=== PATIENT | female | born 1985 | race Caucasian/White ===

== ENCOUNTER 2021-06-22 01:34 | Emergency (ER) | payer OTHER ==
--- OUTSIDE RECORDS SUMMARY | 2021-06-22 01:41 | XMS REPORT | Continuity of Care Document ---
:1985 Author Organization [facility] t Address [address] [place] [address] Care Team Providers Name Role Phone Ronan Attending Clinician Unavailable Sandra Miller Attending Clinician Unavailable Sandra Miller Admitting Clinician Unavailable Payers Payer Name Policy Type Policy Number Effective Date Expiration Date S ource Problems This patient has no known problems. Allergies, Adverse Reactions, Alerts Allergy Allergy Status Severity Reaction(s) Onset Inactive Treating Comm ents Source Name Type Date Date Clinician clavulan DA Active PA 2020-0 [facility] [place] amoxicil DA Active PA 2020-0 [facility] jalyn 04-01 [facility] [place] clavulan DA Active PA hives 2020-0 [facility] - [facility] [place] amoxicil DA Active PA hives 2020-0 [facility] jalyn - [facility] [place] No Known DA Active U [facility] Allergie 09-25 [facility] [place] No Known DA Active U [facility] Allergie 09-25 [facility] [place] Augmenti Adverse Active hives [facility] Medications Ordered Filled Start Stop Current Ordering Indication Dosage Frequency Signature Comments Components Source Medication Medication Date Date Medication? Clinician (SIG) Name Name Metformin Metformin Yes Radha [address] [facility] HCl HCl [place] [facility] Procedures Procedure Date / Time Performed Performing Clinician Natasha holland [id number] 2019-04-01 00:00:00 MARMA.[email or web address] [facility] [id number] 2019-04-01 00:00:00 MARMA.09 [facility] Encounters Start End Encounter Admission Attending Care Care Encounter Source Date/Time Date/Time Type Type Clinicians Facility Department ID 2021-04-18 [facility] [id number] [facility] 12:25:06 Radha [id number] [facility] 2021-04-18 [facility] [id number] [facility] 11:59:38 Radha [id number] [facility] 2021-04-18 [facility] [id number] [facility] 11:59:37 Radha [id number] [facility] 2021-04-18 [facility] [id number] [facility] [address] 11:29:38 Radha [id number] [facility] 2019-04-13 Inpatient Alivia, [facility] [id number] [facility] 12:00:00 Cortez [id number] [facility] [place] [facility] 2019-04-01 In[facility] Babbitt[facility] [id number] [facility] 06:29:00 Cortez [id number] [facility] [place] [facility] 2020-01-18 2020-01-18 [facility] [id number] [facility] 2019-09-23 2019-09-23 [facility] [id number] 16:00[facility]00 16:00:00 [facility] 2018-03-11 2018-03-11 [facility] [id number] 09:30[facility]00 09:30[facility]00 [facility] Results Test Description Test Time Test Comments Results Result [facility] amalia ZENDEJAS 2019-04-06 TUBE,STERILIZATION 14:56:00 --------RUN DATE: 04/07/19 [facility] PAGE 1 RUN TIME: 957 Specimen Inquiry RUN USER: INTERFACE --------PATIENT: NEVILLE ROSENBERG LOC: JENNIFERARLEEN U #: [id number] AGE/SX: 33/F ROOM: [facility] RE04/01/19REG DR: Cortez Miller MD : 85 BED: A DIS: 04/04/19 STATUS: DIS IN TLOC: -------- SPEC #: [id number] RECD: 04/01/19-42 STATUS: CAMILLE TEJADA #: [id number] HENRRY: 01/09/20- SUBM DR: Cortez Miller MD ENTERED: 04/02/19-0742 SP TYPE: [facility] DR: ORDERED: LEVEL II SURGIC/2 CODES: [id number] - FALLOPIAN TUBE PROCEDURES: LEVEL II SURGIC (Incomplete) TISSUES: FALLOPIAN TUBE, NOS - BILATERAL FALLOPIAN TUBES CLINICAL HISTORY 33 year old, , 38.5 weeks, SROM, previous section, multiparity, desires sterility (azalia) FINAL DIAGNOSIS Right fallopian tube, tubal ligation: - fallopian tube with complete surgical transection, no pathologic alteration Left fallopian tube, tubal ligation: - fallopian tube with complete surgical transection, no pathologic alteration CPT code(s): 26330 x2 dominick/azalia dt: 04/06/19 GROSS DESCRIPTION ANATOMIC SOURCE OF TISSUE (per Requisition): Right and left fallopian tube segments (2 containers) Each specimen is labeled with the patient's name and medical record number. Specimen #1 is designated "right fallopian tube" and consists of a 1.0 cm in length and 0.5 cm in diameter pink-purple and hyperemic segment of fallopian tube. The lumen is pinpoint. Sap Basis Consultant sections are submitted labeled A1. Specimen #2 is designated "left fallopian tube" and consists of a 2.0 cm in length and 0.5 cm in diameter pink-purple and hyperemic segment of fallopian tube. The lumen is pinpoint. Sap Basis Consultant sections are submitted labeled B1. daysi/azalia 04/02/19 CONTINUED ON NEXT PAGE --------RUN DATE: 04/07/19 [facility] PAGE 2 RUN TIME: 957 Specimen Inquiry RUN USER: INTERFACE --------SPEC #: [id number] PATIENT: NEVILLE ROSENBERG #[id number] (Continued) MICROSCOPIC DESCRIPTION Specimen #1 - the fallopian tube architecture is intact. The lumen is not dilated. A completely transected segment of fallopian tube is present. Specimen #2 - the fallopian tube architecture is intact. The lumen is not dilated. A completely transected segment of fallopian tube is present. daquan dt: 04/06/19 Signed Tammy Johnson 04/06/19 1456 -------- END OF REPORT CBC W/AUTO DIFF 2019-04-02 06:10:00 Test Item Value Reference Range Interpretation Comme armani WHITE BLOOD CELL (test code = 14.4 K/mm3 6.6-12.1 H Results verified by repeat WBC) analysis RED BLOOD CELL (test code = RBC) 3.96 M/mm3 3.45-5.01 N HEMOGLOBIN (test code = HGB) 11.6 g/dL 10.7-13.9 N HEMATOCRIT (test code = HCT) 34.6 % 32.1-42.1 N MEAN CELL VOLUME (test code = 87 fL 84.1-94.8 N MCV) MEAN CELL HGB (test code = MCH) 29.3 pg 27-35 N MEAN CELL HGB CONCETRATION (test 33.5 gm/dL 32.2-34.1 N code = MCHC) RED CELL DISTRIBUTION WIDTH (test 14.0 % 12.4-16.5 N code = RDW) PLATELET COUNT (test code = PLT) 210 K/mm3 133-385 N IMMATURE PLATELET FRACTION (test 0.0 % 0.0-10.8 N code = IPF) MEAN PLATELET VOLUME (test code = 10.4 fl 9.1-12.7 N MPV) NEUTROPHIL % (test code = NT%) 82.9 % 56.5-79.4 H LYMPHOCYTE % (test code = LY%) 9.7 % 14.3-34.3 L MONOCYTE % (test code = MO%) 6.7 % 5.1-10.4 N EOSINOPHIL % (test code = EO%) 0.0 % 0.1-3.0 L BASOPHIL % (test code = BA%) 0.2 % 0.1-1.0 N NEUTROPHIL # (test code = NT#) 11.9 K/mm3 LYMPHOCYTE # (test code = LY#) 1.4 K/mm3 MONOCYTE # (test code = MO#) 1.0 K/mm3 EOSINOPHIL # (test code = EO#) 0 K/mm3 BASOPHIL # (test code = BA#) 0.0 K/mm3 RBC MORPHOLOGY REQUIRED (test NORMAL NORMAL code = RBCM) PLATELET MORPHOLOGY REQUIRED NORMAL NORMAL (test code = PLTMR) AG HEPATITIS B [id number] 17:16:00 Test Item Value Reference Range Interpretation Comments AG HEPATITIS B SURFACE (test code NONREACTIVE NONREACTIVE = HBSAG) IS CONSENT FORM SIGNED FOR HIV TESTING? YAB HEPATITIS C [id number] 17:16:00 Test Item Value Reference Range Interpretation Comments AB HEPATITIS C (test code = NONREACTIVE NONREACTIVE HCVAB) SIGNAL TO CUTOFF (test code = 0.09 <0.80 N CUTOFF) IS CONSENT FORM SIGNED FOR HIV TESTING? YAB [id number] 17:16:00 Test Item Value Reference Range Interpretation Comments AB TREPONEMA (test code = TREPAB) NONREACTIVE NONREACTIVE IS CONSENT FORM SIGNED FOR HIV TESTING? YAB HIV 1 17:16:00 Test Item Value Reference Range Interpretation Comments AB HIV 1 2 (test NONREACTIVE NONREACTIVE Done by [facility] code = CIT21CQ) 4th Gen HIV Ag/Ab Combo Screen IS CONSENT FORM SIGNED FOR HIV TESTING? YCOMPREHENSIVE METABOLIC [id number] 16:03:00 Test Item Value Reference Range Interpretation Comments SODIUM (test code = NA) 137 mEq/L 135-145 N POTASSIUM (test code = K) 3.6 mEq/L 3.5-5.0 N CHLORIDE (test code = CL) 104 mEq/L 100-115 N CARBON DIOXIDE (test code = CO2) 20 mEq/L 22-31 L ANION GAP (test code = GAP) 16.60 10-20 N GLUCOSE (test code = GLU) 156 mg/dL 65-110 H BLOOD UREA NITROGEN (test code = 6 mg/dL 7-18 L BUN) GLOMERULAR FILTRATION RATE (test 142 ml/min >60 N code = GFR) CREATININE (test code = CREAT) 0.5 mg/dL 0.5-1.0 N TOTAL PROTEIN (test code = PROT) 6.3 gm/dL 6.3-8.2 N ALBUMIN (test code = ALB) 2.8 gm/dL 3.4-4.8 L CALCIUM (test code = CA) 8.8 mg/dL 8.4-10.2 N BILIRUBIN TOTAL (test code = BILT) 0.5 mg/dL 0.2-1.0 N SGOT/AST (test code = AST) 19 units/L 15-37 N SGPT/ALT (test code = ALT) 18 units/L 12-78 N ALKALINE PHOSPHATASE TOTAL (test 99 units/L 46-116 N code = ALKP) CBC W/AUTO [id number] 16:02:00 Test Item Value Reference Range Interpretation Comments WHITE BLOOD CELL (test code = WBC) 9.0 K/mm3 6.6-12.1 N RED BLOOD CELL (test code = RBC) 4.18 M/mm3 3.45-5.01 N HEMOGLOBIN (test code = HGB) 12.4 g/dL 10.7-13.9 N HEMATOCRIT (test code = HCT) 36.8 % 32.1-42.1 N MEAN CELL VOLUME (test code = MCV) 88 fL 84.1-94.8 N MEAN CELL HGB (test code = MCH) 29.7 pg 27-35 N MEAN CELL HGB CONCETRATION (test 33.7 gm/dL 32.2-34.1 N code = MCHC) RED CELL DISTRIBUTION WIDTH (test 14.7 % 12.4-16.5 N code = RDW) PLATELET COUNT (test code = PLT) 221 K/mm3 133-385 N IMMATURE PLATELET FRACTION (test 0.0 % 0.0-10.8 N code = IPF) MEAN PLATELET VOLUME (test code = 10.6 fl 9.1-12.7 N MPV) NEUTROPHIL % (test code = NT%) 77.6 % 56.5-79.4 N LYMPHOCYTE % (test code = LY%) 17.7 % 14.3-34.3 N MONOCYTE % (test code = MO%) 4.0 % 5.1-10.4 L EOSINOPHIL % (test code = EO%) 0.1 % 0.1-3.0 N BASOPHIL % (test code = BA%) 0.3 % 0.1-1.0 N NEUTROPHIL # (test code = NT#) 7.0 K/mm3 LYMPHOCYTE # (test code = LY#) 1.6 K/mm3 MONOCYTE # (test code = MO#) 0.4 K/mm3 EOSINOPHIL # (test code = EO#) 0.01 K/mm3 BASOPHIL # (test code = BA#) 0.0 K/mm3 RBC MORPHOLOGY REQUIRED (test code NORMAL NORMAL = RBCM) PLATELET MORPHOLOGY REQUIRED (test NORMAL NORMAL code = PLTMR) - US FET BIO PH NE W/O [id number] 11:21:00 Patient Name: NEVILLE ROSENBERG Unit No: [id number] EXAMS: CPT CODE: [id number] US FET BIO PH NE W/O NST [address] [facility] [address] [place], [place] [address] BIOPHYSICAL PROFILE ULTRASOUND REPORT Pat. Name: NEVILLE ROSENBERG. No: [id number] Date: 04/01/2019 10:05am , Age: 03 1985, 33 Pregnancies: 4, Para 2, Ab1 LMP: Unknown GA Selected: 38w5d (From Known E) MARCELA: 04/10/2019 Referring MD: VANDA KONG Mixer Blender: Rafael Reardon RDMS CPT4: USBPPWONST Admitting MD: CORTEZ MILLER Hist/Ind: Contractions Bleeding ARI BPP Scan #1 Heart Rate: 147 bpm Amniotic Fluid Index: 07.7cm (07.2-23.0) Q1: 1.1cm Q2: 2.6cm Q3: 4.0cm Q4:0.0cm Biophysical Profile: 10/29 Breathin Tone: 2 Movement: 2 AFV: 2 CLINICAL SUMMARY Type of Gestation: Boo Intrauterine in vertex presentation. motion and organs seen: heart motion seen body and limb movements observed tone noted breathing movements observed Placental location: Anterior Placental maturity : Grade 2There is no evidence of placenta previa. Amniotic fluid volume is IN LOWER LIMIT NORMAL RANGE.Uterus and adnexa: No significant abnormality is seen. Biophysical Profile Movement score is 2. Breathing score is 2. Tone score is 2. Amniotic Fluid score is 2. Total Scores 8/8. COMMENTS: ARI IS LOW NORMAL. Thank you for allowing us to participate in the care of this patient. Ngoc Damian M.D. [facility] NAME: NEVILLE ROSENBERG Radiology Department PHYS: Vanda Sutherland MD [address] : 1985 AGE: 33 SEX: F [place] [address] LOC: VarinderDAVID PHONE #: [phone] EXAM DATE: 04/01/2019 STATUS: REG ER FAX #: [phone] RADNO: Page 1 Signed Report (CONTINUED) Patient Name: NEVILLE ROSENBERG Unit No: [id number] EXAMS: CPT CODE: [id number] US FET BIO PH NE W/O NST 24481 <Continued> Electronic Signature 04/01/2019 11:21am at 1121 Reported and signed by: Ngoc Damian MD CC: Vanda Kong MD; Cortez Miller MD Technologist: Rafael Reardon RDMS Probe: Trnscrbd D/ (1121) t.SDR.C Orig Print D/T: S: 04/01/2019 (1121) [facility] NAME: NEVILLE ROSENBERG Radiology Department PHYS: Vanda Sutherland MD [address] : 1985 AGE: 33 SEX: F [place] [address] LOC: VarinderDAVID PHONE #: [phone] EXAM DATE: 04/01/2019 STATUS: REG ER FAX #: [phone] RAD NO: Page 2 Signed Report Patient Name: NEVILLE ROSENBERG Unit No: [id number] EXAMS: CPT CODE: [id number] US FET BIO PH NE W/O NST 81070 <Continued> [facility] NAME: NEVILLE ROSENBERG Radiology Department PHYS: Vanda Sutherland MD [address] : 1985 AGE: 33 SEX: F [place], [place] [address] LOC: VarinderDAVID PHONE #: [phone] EXAM DATE: 04/01/2019 STATUS: REG ER FAX #: [phone] RAD NO: Page 3 Signed ReportAMNISURE (ROM) [id number] 09:57:00 Test Item Value Reference Range Interpretation Comments AMNISURE (ROM) TEST (test code = RUPTURED NON-RUPTURE A AMNI) : *Amnisure QC OK? YES
[2021-06-22] MEDS ORDERED: ASPIRIN 81 MG CHEWABLE TABLET ONE (03:28)
[2021-06-22] MEDS ORDERED: NA CHLORIDE 0.9% 1,000 ML ONE (03:43)
[2021-06-22 04:00] LABS: Absolute Lymphocytes (CBC) 1.2 K/uL (0.7-4.9); Hematocrit 38.9 % (36.0-45.0); Lymphocytes % 17.1 % (15.3-44.8); MPV 8.1 fL (7.6-11.3); RBC Red Blood Cell Count 4.62 M/uL (3.86-4.86)
[2021-06-22 04:28] LABS: Albumin 3.9 g/dL (3.4-5.0); Bilirubin Direct 0.1 mg/dL (0-0.2); Bilirubin Total 0.4 mg/dL (0.2-1.0); Potassium 3.9 mmol/L (3.5-5.1); Protein, Total 8.3 g/dL (6.4-8.2); Thyroid Stimulating Hormone 0.479 uIU/mL (0.360-3.740); Troponin High Sensitivity 3.2 pg/mL (<58.9)
[2021-06-22 04:34] LABS: SARS-COV-2 RT PCR NEGATIVE (NEGATIVE)
--- NOTE | 2021-06-22 04:37 | ER ---
Nurse's Notes [facility] Name: Maria M Watson Age: 36 yrs Sex: Female : 1985 Arrival Date: 06/22/2021 Time: 01:41 Bed 10 Private MD: Diagnosis: Palpitations;Chest pain, unspecified Presentation: 06/22 01:42 Chief complaint: Patient states: "I woke up and I couldn't breath, I couldn't catch my tw5 breath. My heart rate was in the 130's. I couldn't even think. I guess it was a panic attack, I have never had one." EMS states: "She has a History of anxiety, she started to taking paxil. She says she has never experienced an anxiety attack before. She started calming down on the ride over.". Coronavirus screen: Vaccine status: Patient reports receiving the 2nd dose of the covid vaccine. J and J. Ebola Screen: Patient negative for fever greater than or equal to 101.5 degrees Fahrenheit, and additional compatible Ebola Virus Disease symptoms Patient denies exposure to infectious person. Patient denies travel to an Ebola-affected area in the 21 days before illness onset. Initial Sepsis Screen: Does the patient meet any 2 criteria? No. Patient's initial sepsis screen is negative. Does the patient have a suspected source of infection? No. Patient's initial sepsis screen is negative. Risk Assessment: Do you want to hurt yourself or someone else? Patient reports no desire to harm self or others. Onset of symptoms was June 22, 2021 at 01:00. 01:42 Method Of Arrival: EMS: [facility] tw5 01:42 Acuity: JEB 4 Triage Assessment: 01:45 General: Appears in no apparent distress. Behavior is cooperative, anxious. Pain: tw5 Denies pain. 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 - Social history:: Smoking status: Patient denies any tobacco usage or history of. - Family history:: not pertinent. Screenin:00 Abuse screen: Denies threats or abuse. Denies injuries from another. Nutritional tk1 screening: No deficits noted. Tuberculosis screening: No symptoms or risk factors identified. Fall Risk None identified. Assessment: 01:47 General: Reports "I feel weird, I don't know how to describe it. I guess right now I tw5 feel almost like a zombie. I feel like I can breath again.". 03:00 General: Appears in no apparent distress. comfortable, well groomed, well developed, tk1 well nourished, Behavior is calm, cooperative, appropriate for age. Pain: Denies pain. 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 Gait is steady, Speech is normal, Facial symmetry appears normal. Cardiovascular: Reports chest pain, prior to arrival Heart tones S1 S2 Capillary refill < 3 seconds Clubbing of nail beds is absent Patient's skin is warm and dry. Respiratory: Airway is patent Respiratory effort is even, unlabored, Respiratory pattern is regular, symmetrical, Breath sounds are clear. GI: No deficits noted. No signs and/or symptoms were reported involving the gastrointestinal system. : No signs and/or symptoms were reported regarding the genitourinary system. EENT: No deficits noted. No signs and/or symptoms were reported regarding the EENT system. Derm: No deficits noted. No signs and/or symptoms reported regarding the dermatologic system. Musculoskeletal: No deficits noted. No signs and/or symptoms reported regarding the musculoskeletal system. 04:00 Reassessment: Patient and/or family updated on plan of care and expected duration. Pain tk1 level reassessed. Patient is alert, oriented x 3, equal unlabored respirations, skin warm/dry/pink. Patient denies pain at this time. 05:00 Reassessment: Patient and/or family updated on plan of care and expected duration. Pain tk1 level reassessed. Patient is alert, oriented x 3, equal unlabored respirations, skin warm/dry/pink. Patient denies pain at this time. 06:15 Reassessment: D/C per MD order. Discharge/Prescription instructions given to patient tk1 and . Verbalized understanding. Vital Signs: 01:42 BP 136 / 59; Pulse 87; Resp 18; Temp 98.8(TE); Pulse Ox 98% on R/A; Weight 90.72 kg; tw5 Height 5 ft. 3 in. (160.02 cm); Pain 2/10; 03:00 BP 116 / 70 LA Supine (auto/reg); Pulse 83 MON; Resp 15 S; Pulse Ox 100% on R/A; Pain tk1 0/10; 04:00 BP 109 / 69 LA Supine (auto/reg); Pulse 82 MON; Resp 16 S; Pulse Ox 100% on R/A; Pain tk1 0/10; 05:00 BP 120 / 75 LA Supine (auto/reg); Pulse 77 MON; Resp 18 S; Temp 98.1(O); Pulse Ox 100% tk1 ; Pain 0/10; 01:42 Body Mass Index 35.43 (90.72 kg, 160.02 cm) tw5 ED Course: 01:41 Patient arrived in ED. kc5 01:45 Triage completed. tw5 01:45 Arm band placed on right wrist. tw5 01:48 Patient notified of wait time. tw5 02:12 Edmund Melgar MD is Attending Physician. alfredo 02:52 Victoria Riddle is Primary Nurse. tk1 03:00 Patient has correct armband on for positive identification. Call light in reach. tk1 03:00 No provider procedures requiring assistance completed. tk1 03:35 Inserted saline lock: 20 gauge in right antecubital area, using aseptic technique. tk1 Blood collected. 04:04 Extrem Venous W Compress Dale In Process Unspecified. EDMS 04:37 Eusebio Amado MD is Referral Physician. alfredo 04:48 XRAY Chest (1 view) In Process Unspecified. EDMS 04:50 CBC with Diff Sent. tk1 04:50 PT-INR Sent. tk1 05:00 Awaiting radiology results. tk1 05:25 Chest For Pe Angio In Process Unspecified. EDMS 06:15 IV discontinued, intact, bleeding controlled, No redness/swelling at site. Pressure tk1 dressing applied. Administered Medications: 03:41 Drug: NS 0.9% 1000 ml Route: IV; Rate: 1 bolus; Infused Over: 1 hrs; Site: right tk1 antecubital; Delivery: Primary tubing; 04:40 Follow up: IV Status: Completed infusion; IV Intake: 1000ml tk1 04:40 Follow up: Response: No adverse reaction; IV Status: Completed infusion; IV Intake: tk1 1000ml 04:50 Follow up: Response: No adverse reaction tk1 03:41 Drug: Aspirin Chewable Tablet 81 mg Route: PO; tk1 04:30 Follow up: Response: No adverse reaction tk1 Intake: 04:40 IV: 1000ml; Total: 1000ml. tk1 04:40 IV: 1000ml; Total: 2000ml. tk1 Outcome: 04:37 Discharge ordered by MD. fuentes 06:15 Discharged to home ambulatory, with family. tk1 06:15 Condition: stable 06:15 Discharge instructions given to patient, family, Instructed on discharge instructions, follow up and referral plans. medication usage, Demonstrated understanding of instructions, follow-up care, medications. 06:39 Patient left the ED. tk1 Signatures: Dispatcher [employer] Edmund Ann MD MD cha Wood, Tiffany tw5 Thania Calle kc5 Victoria Riddle tk1 Corrections: (The following items were deleted from the chart) 06:36 05:11 In radiology for Extrem Venous W Compression Dale+US.RAD.BRZ. RINA FLYNN
--- NOTE | 2021-06-22 04:37 | EDPHYS ---
Physician Documentation [facility] Name: Maria M Watson Age: 36 yrs Sex: Female : 1985 Arrival Date: 06/22/2021 Time: 01:41 Bed 10 Private MD: ED Physician Edmund Melgar HPI: 06/22 02:36 This 36 yrs old Female presents to ER via EMS with complaints of Anxiety. alfredo 02:36 The patient has shortness of breath at rest, with light activity. Onset: The alfredo symptoms/episode began/occurred 2 day(s) ago. Duration: The symptoms are continuous, and are steadily getting worse. The patient's shortness of breath has no apparent modifying factors. The patient or guardian reports chest pain that is located primarily in the anterior chest wall, bilaterally. The patient presents with a history of heart racing, heart skipping beats. Context: The symptoms occur during sleep. 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 - Social history:: Smoking status: Patient denies any tobacco usage or history of. - Family history:: not pertinent. ROS: 02:36 Constitutional: Negative for fever, chills, and weight loss, Eyes: Negative for injury, alfredo pain, redness, and discharge, ENT: Negative for injury, pain, and discharge, Neck: Negative for injury, pain, and swelling, Respiratory: Negative for shortness of breath, cough, wheezing, and pleuritic chest pain, Abdomen/GI: Negative for abdominal pain, nausea, vomiting, diarrhea, and constipation, Back: Negative for injury and pain, : Negative for injury, bleeding, discharge, and swelling, MS/Extremity: Negative for injury and deformity, Skin: Negative for injury, rash, and discoloration, Neuro: Negative for headache, weakness, numbness, tingling, and seizure, Psych: Negative for depression, anxiety, suicide ideation, homicidal ideation, and hallucinations, Allergy/Immunology: Negative for hives, rash, and allergies, Endocrine: Negative for neck swelling, polydipsia, polyuria, polyphagia, and marked weight changes, Hematologic/Lymphatic: Negative for swollen nodes, abnormal bleeding, and unusual bruising. 02:36 Cardiovascular: Positive for chest pain, of the chest. Exam: 02:36 Constitutional: This is a well developed, well nourished patient who is awake, alert, alfredo and in no acute distress. Head/Face: Normocephalic, atraumatic. Eyes: Pupils equal round and reactive to light, extra-ocular motions intact. Lids and lashes normal. Conjunctiva and sclera are non-icteric and not injected. Cornea within normal limits. Periorbital areas with no swelling, redness, or edema. ENT: Nares patent. No nasal discharge, no septal abnormalities noted. Tympanic membranes are normal and external auditory canals are clear. Oropharynx with no redness, swelling, or masses, exudates, or evidence of obstruction, uvula midline. Mucous membranes moist. Neck: Trachea midline, no thyromegaly or masses palpated, and no cervical lymphadenopathy. Supple, full range of motion without nuchal rigidity, or vertebral point tenderness. No Meningismus. Chest/axilla: Normal chest wall appearance and motion. Nontender with no deformity. No lesions are appreciated. Respiratory: Lungs have equal breath sounds bilaterally, clear to auscultation and percussion. No rales, rhonchi or wheezes noted. No increased work of breathing, no retractions or nasal flaring. Abdomen/GI: Soft, non-tender, with normal bowel sounds. No distension or tympany. No guarding or rebound. No evidence of tenderness throughout. Back: No spinal tenderness. No costovertebral tenderness. Full range of motion. Pelvic Exam: Normal external genitalia. Speculum exam with closed cervical os, no discharge or bleeding noted. Bimanual exam with normal adnexa, no adnexal or cervical motion tenderness. Normal uterus. Female : Normal external genitalia. Skin: Warm, dry with normal turgor. Normal color with no rashes, no lesions, and no evidence of cellulitis. MS/ Extremity: Pulses equal, no cyanosis. Neurovascular intact. Full, normal range of motion. Neuro: Awake and alert, GCS 15, oriented to person, place, time, and situation. Cranial nerves II-XII grossly intact. Motor strength 5/5 in all extremities. Sensory grossly intact. Cerebellar exam normal. Normal gait. Psych: Awake, alert, with orientation to person, place and time. Behavior, mood, and affect are within normal limits. 02:36 Cardiovascular: Rhythm: regular, Heart sounds: murmur, not appreciated, JVD: is not appreciated. Vital Signs: 01:42 BP 136 / 59; Pulse 87; Resp 18; Temp 98.8(TE); Pulse Ox 98% on R/A; Weight 90.72 kg; tw5 Height 5 ft. 3 in. (160.02 cm); Pain 2/10; 03:00 BP 116 / 70 LA Supine (auto/reg); Pulse 83 MON; Resp 15 S; Pulse Ox 100% on R/A; Pain tk1 0/10; 04:00 BP 109 / 69 LA Supine (auto/reg); Pulse 82 MON; Resp 16 S; Pulse Ox 100% on R/A; Pain tk1 0/10; 05:00 BP 120 / 75 LA Supine (auto/reg); Pulse 77 MON; Resp 18 S; Temp 98.1(O); Pulse Ox 100% tk1 ; Pain 0/10; 01:42 Body Mass Index 35.43 (90.72 kg, 160.02 cm) tw5 MDM: 02:12 Patient medically screened. alfredo 02:39 Differential diagnosis: Bronchitis CHF exacerbation, abnormal EKG, acute pericarditis, alfredo anxiety, chest wall pain, congestive heart failure cholecystitis, Cholelithiasis costochondritis, arrythmia, dehydration, hiatal hernia, pancreatitis, pneumonia, pulmonary embolus, Myocardial Infarction pneumonia, Pneumothorax pulmonary edema, Pulmonary Embolism Sepsis Unstable Angina. Antibiotic administration: Not indicated. HEART Score: History: Slightly Suspicious (0), ECG: Normal (0), Age: < or = 45 years (0), Risk Factors: 1 or 2 risk factors (1), [+ Family HX] [Obesity] Troponin: < or = 1 x Normal Limit (0). The patient's Wells Deep Vein Thrombosis Score was calculated as follows: Total Score: 0. This patient was found to be at low risk for a deep vein thrombosis by using the Well's assessment criteria Total Score: 0-2 Pts- Low Risk. The patient's pulmonary embolism risk score was calculated as follows: Total Score: 0-2 points. This patient was found to be at low risk for a pulmonary embolism by using the Well's assessment criteria Total Score: 0-2 points. This patient was found to be at low risk for a pulmonary embolism by using the Well's assessment criteria. JAYE Risk Score: TOTAL SCORE = 0. Immunization status:. Data reviewed: vital signs, nurses notes, lab test result(s), EKG, radiologic studies. Data interpreted: lunchroom monitor: rate is 87 beats/min, rhythm is regular, Pulse oximetry: on room air is 98 %. Test interpretation: by ED physician or midlevel provider: ECG, plain radiologic studies. Counseling: I had a detailed discussion with the patient and/or guardian regarding: the historical points, exam findings, and any diagnostic results supporting the discharge/admit diagnosis, lab results, radiology results. 06/22 02:36 Order name: Basic Metabolic Panel; Complete Time: 04:36 alfredo 06/22 02:36 Order name: CBC with Diff [facility] 06/22 02:36 Order name: LFT's; Complete Time: 04:36 alfredo 06/22 02:36 Order name: Magnesium; Complete Time: 04:36 alfredo 06/22 02:36 Order name: NT PRO-BNP; Complete Time: 04:36 alfredo 06/22 02:36 Order name: PT-INR [facility] 06/22 02:36 Order name: Troponin HS; Complete Time: 04:36 alfredo 06/22 02:36 Order name: Lipase; Complete Time: 04:36 alfredo 06/22 02:36 Order name: COVID-19/FLU A+B (Document "Date of Onset" if Symptomatic); Complete Time: alfredo 04:36 06/22 02:42 Order name: TSH; Complete Time: 04:36 alfredo 06/22 04:04 Order name: CBC with Automated Diff; Complete Time: 04:36 EDMS 06/22 04:07 Order name: Protime (+INR) EDMS 06/22 04:55 Order name: Urine Dipstick-Ancillary EDMS 06/22 04:58 Order name: Urine --Ancillary (enter results) cs9 06/22 02:36 Order name: XRAY Chest (1 view) alfredo 06/22 02:36 Order name: EKG; Complete Time: 03:50 alfredo 06/22 02:36 Order name: Cardiac monitoring; Complete Time: 03:41 alfredo 06/22 02:36 Order name: EKG - Nurse/Tech; Complete Time: 03:40 alfredo 06/22 02:36 Order name: IV Saline Lock; Complete Time: 03:41 alfredo 06/22 02:36 Order name: Labs collected and sent; Complete Time: 03:41 alfredo 06/22 02:36 Order name: O2 Per Protocol; Complete Time: 03:41 alfredo 06/22 02:36 Order name: O2 Sat Monitoring; Complete Time: 03:41 alfredo 06/22 02:36 Order name: Urine Dipstick-Ancillary (obtain specimen); Complete Time: 04:50 alfredo 06/22 02:36 Order name: Urine Test (obtain specimen); Complete Time: 04:50 alfredo 06/22 04:02 Order name: Chest For Pe Angio EDMS 06/22 04:02 Order name: Extrem Venous W Compress [place] EDMS Administered Medications: 03:41 Drug: NS 0.9% 1000 ml Route: IV; Rate: 1 bolus; Infused Over: 1 hrs; Site: right tk1 antecubital; Delivery: Primary tubing; 04:40 Follow up: IV Status: Completed infusion; IV Intake: 1000ml tk1 04:40 Follow up: Response: No adverse reaction; IV Status: Completed infusion; IV Intake: tk1 1000ml 04:50 Follow up: Response: No adverse reaction tk1 03:41 Drug: Aspirin Chewable Tablet 81 mg Route: PO; tk1 04:30 Follow up: Response: No adverse reaction tk1 Disposition Summary: 06/22/21 04:37 Discharge Ordered Location: Home alfredo Problem: new alfredo Symptoms: have improved alfredo Condition: Stable alfredo Diagnosis - Palpitations alfredo - Chest pain, unspecified alfredo Followup: alfredo - With: Private Physician - When: 2 - 3 days - Reason: Recheck today's complaints, Continuance of care, Re-evaluation by your physician Followup: alfredo - With: - When: 2 - 3 days - Reason: Recheck today's complaints, Re-evaluation by your physician Discharge Instructions: - Discharge Summary Sheet alfredo - Nonspecific Chest Pain, Adult alfredo - Palpitations alfredo - Nonspecific Chest Pain, Adult, [id number] alfredo - Aspirin and Your Heart alfredo - Palpitations, [id number] alfredo Forms: - Medication Reconciliation Form alfredo - Thank You Letter alfredo - Antibiotic Education alfredo - Prescription Opioid Use [facility] Prescriptions: - Pepcid 20 mg Oral Tablet - take 1 tablet by ORAL route every 12 hours for 10 days; 20 tablet; Refills: 0, alfredo Product Selection Permitted - Toprol XL 25 mg Oral Tablet - take 1 tablet by ORAL route once daily; 20 tablet; Refills: 0, Product [facility] Selection Permitted Signatures: Dispatcher [employer] EDMS Edmund Melgar MD MD cha Wood, Tiffany tw5 Victoria Riddle tk1 Corrections: (The following items were deleted from the chart) 04:10 03:50 Chest For PE Angio+CT.RAD.BRZ ordered. EDMS EDMS 06:36 03:50 Extrem Venous W Compression [place]+US.RAD.BRZ ordered. EDMS EDMS
[2021-06-22 04:55] LABS: Urine Blood Negative (Negative); Urine Glucose Negative (Negative); Urine Protein Negative (Negative)
[2021-06-22 07:45] VITALS: O2SAT 100
[2021-06-22 07:47] VITALS: BP 120/75; TEMP 98.1
--- NOTE | 2021-06-22 11:02 | RAD REPORT ---
EXAM DESCRIPTION: RAD - Chest Single View - 06/22/2021 4:46 am COMPARISON: None. CLINICAL HISTORY: CHEST PAIN FINDINGS: A single AP view of the chest demonstrates a normal cardiomediastinal silhouette. No pneumothorax or pleural effusion. No consolidation or pulmonary edema. Osseous structures are intact. IMPRESSION: No acute chest process. Electronically signed by: Boby Saba MD 06/22/2021 5:59 AM CDT Due to temporary technical issues with the PACS/Fluency reporting system, reports are being signed by the in house radiologist without review as a courtesy to ensure prompt reporting. The interpreting r adiologist is fully responsible for the content of the report.
--- NOTE | 2021-06-22 11:03 | RAD REPORT ---
EXAM DESCRIPTION: US - Extrem Venous W Compress [place] - 06/22/2021 4:20 am CLINICAL HISTORY: 36 years, Female, pain COMPARISON: None. FINDINGS: Multiple grayscale images as well as duplex Doppler ultrasound of both lower extremities w ere performed. Both common femoral veins, superficial femoral veins, popliteal veins posterior tibial and peroneal v eins at the level of the calves and ankles were imaged. Spectral waveform demonstrate normal comp ressibility, phasicity and augmentation. No intraluminal defects were seen. IMPRESSION: NO EVIDENCE FOR DEEP VEIN THROMBOSIS BILATERAL LOWER EXTREMITIES. Electronically signed by: Weston Dowling MD 06/22/2021 3:49 AM CDT Due to temporary technical issues with the PACS/Fluency reporting system, reports are being signed by the in house radiologist without review as a courtesy to ensure prompt reporting. The interpreting r adiologist is fully responsible for the content of the report.
--- NOTE | 2021-06-22 11:05 | RAD REPORT ---
EXAM DESCRIPTION: CT - Chest For Pe Angio - 06/22/2021 7:04 am CLINICAL HISTORY: 36 years, Female, pain COMPARISON: None. TECHNIQUE: Axial images through the chest were performed after the administration of intravenous con trast using a pulmonary embolus protocol. MIPS were performed. This exam was performed according to our departmental dose-optimization program which includes use of Automated Exposure Control, adjustm ent of the mA and/or kV according to patient size and/or use of iterative reconstruction technique. FINDINGS: No pulmonary embolus is identified however, distal pulmonary artery branches are not well visualized due to motion artifact.. Thoracic aorta is unremarkable. Cardiac chambers are normal in size. No coronary calcifications. No pericardial effusion. No pleural effusion. No focal lung consolidation. No pneumothorax. Patent central airway. Soft tissues are unremarkable. No acute osseous findings. No acute abnormality within the visualized upper abdomen. Diffuse fatty infiltration of the liver. IMPRESSION: Negative for pulmonary embolism although the distal aspect of the pulmonary artery branc hes are not well visualized due to motion artifact. Electronically signed by: Donny Dill DO 06/22/2021 6:06 AM CDT Due to temporary technical issues with the PACS/Fluency reporting system, reports are being signed by the in house radiologist without review as a courtesy to ensure prompt reporting. The interpreting r adiologist is fully responsible for the content of the report.
--- NOTE | 2021-06-25 11:22 | EKG ---
Test Date: 2021-06-22 Test Time: 03:32:23 Medical Transcriptionist: DEE MEASUREMENT RESULTS: Intervals: Rate: 83 MA: 148 QRSD: 86 QT: 376 QTc: 441 [place]: P: 57 MA: 148 QRS: 30 T: 17 INTERPRETIVE STATEMENTS: Normal sinus rhythm with sinus arrhythmia Cannot rule out Anterior infarct, age undetermined Abnormal ECG No previous ECG available for comparison Electronically Signed On 06-25-21 11:13:46 CDT by Eusebio Amado
== END 2021-06-22 06:39 | disposition home or self-care (01) ==
LOC: ER 01:34
DX: R07.9 Chest pain, unspecified (principal); R00.2 Palpitations; F41.9 Anxiety disorder, unspecified; Z88.1 Allergy status to other antibiotic agents; Z20.822 Contact with and (suspected) exposure to COVID-19
CPT/HCPCS: 93005; 85025; 80048; 36415; 83735; 81025; 85610; 80076; 84443; 81003; 84484; 83690; 83880; 0240U; 71275; 71045; 93970; 96360; 99284; Q9967; J7030